=== PATIENT | male | born 1940 | race Caucasian/White ===

== ENCOUNTER → 2019-04-09 | Outpatient (CLI) | payer SELFPAY | END | disposition home or self-care (01) | LOC: LAB 19:24 → LAB SHORT 19:24 | DX: L08.9 Local infection of the skin and subcutaneous tissue, unspecified (principal) | CPT/HCPCS: 87070; 87075; 87077; 87147; 87186; 87205 ==

== ENCOUNTER 2019-05-23 14:00 | Emergency (ER) | payer OTHER, MEDICARE ==
[~2019-05-23] VITALS: Ht 188 cm; Wt 101.6 kg
[2019-05-23] MEDS ORDERED: NOVOLOG FL100 UNIT/1 SC (14:19)
[2019-05-23] MEDS ORDERED: BASAGLAR K100 UNIT/1 SC ×2 (14:19)
[2019-05-23] MEDS ORDERED: LOSA50 PO (14:20)
[2019-05-23] MEDS ORDERED: METO50ER PO (14:20)
[2019-05-23] MEDS ORDERED: NITR.4SL SL (14:20)
[2019-05-23] MEDS ORDERED: SENN187 PO (14:21)
[2019-05-23] MEDS ORDERED: MIRALAX17 GM PO (14:21)
[2019-05-23] MEDS ORDERED: OXYC5 PO (14:21)
[2019-05-23] MEDS ORDERED: OMEP20ER PO (14:21)
[2019-05-23] MEDS ORDERED: TORSE20 PO (14:22)
[2019-05-23] MEDS ORDERED: Gas Relief80 MG PO (14:22)
[2019-05-23] MEDS ORDERED: Saline Nose Spr45 ML (14:22)
[2019-05-23] MEDS ORDERED: Fergon240 M1 PO (14:23)
[2019-05-23] MEDS ORDERED: FINA5 PO (14:23)
[2019-05-23] MEDS ORDERED: Vitamin D2000 UNIT PO (14:23)
[2019-05-23] MEDS ORDERED: GABA300 PO (14:24)
[2019-05-23] MEDS ORDERED: ACET325 PO (14:24)
[2019-05-23] MEDS ORDERED: ELIQUIS5 MG PO (14:25)
[2019-05-23] MEDS ORDERED: ALBU90OI INH (14:25)
[2019-05-23] MEDS ORDERED: ASCO500 PO (14:25)
[2019-05-23] MEDS ORDERED: Aspirin EC81 MG PO (14:26)
[2019-05-23 14:43] LABS: BASOPHILS ABSOLUTE AUTO 0.07 K/mm3 (0.00-0.23); BASOPHILS PERCENT AUTO 1 % (0-2); EOSINOPHILS ABSOLUTE AUTO 0.25 K/mm3 (0.00-0.68); EOSINOPHILS PERCENT AUTO 2 % (0-6); Hematocrit 45.5 % (37.0-53.0); Hemoglobin 14.4 g/dL (13.5-17.5); IMMATURE GRAN ABSOLUTE AUTO 0.04 K/mm3 (0.00-0.10); IMMATURE GRAN PERCENT AUTO 0 % (0-1); LYMPHOCYTES ABSOLUTE AUTO 1.39 K/mm3 (0.84-5.20); LYMPHOCYTES PERCENT AUTO 14 % (21-46); MONOCYTES ABSOLUTE AUTO 0.63 K/mm3 (0.16-1.47); MONOCYTES PERCENT AUTO 6 % (4-13); Mean Corpuscular HGB 29.4 pg (26.0-34.0); Mean Corpuscular HGB Conc 31.6 g/dL (31.5-36.5); Mean Corpuscular Volume 93 fL (80-100); Mean Platelet Volume 12.7 fL (9.1-12.4); NEUTROPHILS ABSOLUTE AUTO 7.94 K/mm3 (1.96-9.15); NEUTROPHILS PERCENT AUTO 77 % (41-73); Platelet Count 175 K/mm3 (150-400); RDW Coefficient Variation 14.2 % (11.7-14.2); RDW Standard Deviation 48.8 fL (35.1-46.3); White Blood Cell Count 10.32 K/mm3 (4.00-11.30)
[2019-05-23 14:57] LABS: Albumin, Blood 3.2 g/dL (3.4-5.0); Albumin/Globulin Ratio 0.6 (0.8-1.8); Bilirubin, Total 0.6 mg/dL (0.1-1.0); Bun/Creatinine Ratio 30.5 (12.0-20.0); C-REACTIVE PROTEIN, EXT RANGE 1.66 mg/dL (0.000-0.300); Calcium, Blood 9.5 mg/dL (8.5-10.1); Creatinine, Blood 2.1 mg/dL (0.60-1.20); Globulin, Blood 5.7 g/dL (2.2-4.0); Potassium, Blood 4.4 mmol/L (3.5-5.5); Total Protein, Blood 8.9 g/dL (6.4-8.2)
[2019-05-23] MEDS ORDERED: DOXYCYCLINE HY100 M1 PO (17:08)
[2019-05-23] MEDS ORDERED: Bactrim Ds Tab1 EACH PO (17:08)
== END 2019-05-23 17:52 | disposition home or self-care (01) ==
LOC: ER 14:00
PROVIDERS: Emergency Medicine
DX: E11.621 Type 2 diabetes mellitus with foot ulcer (principal); L97.519 Non-pressure chronic ulcer of other part of right foot with unspecified severity; I48.91 Unspecified atrial fibrillation; Z79.82 Long term (current) use of aspirin; Z79.899 Other long term (current) drug therapy; Z79.4 Long term (current) use of insulin; Z89.411 Acquired absence of right great toe
CPT/HCPCS: 36415; 73620; 80053; 82947; 83605; 85025; 85651; 86140; 93005; 93010; 99284-25

== ENCOUNTER 2019-08-18 05:14 | Observation (INO) | payer OTHER, MEDICARE ==
[~2019-08-18] VITALS: Ht 188 cm; Wt 108.2 kg
[~2019-08-18 05:14] MED LIST: ACET325 PO; ALBU90OI INH; ASCO500 PO; Aspirin EC81 MG PO; BASAGLAR K100 UNIT/1 SC; Bactrim Ds Tab1 EACH PO; DOXYCYCLINE HY100 M1 PO; ELIQUIS5 MG PO; FINA5 PO; Fergon240 M1 PO; GABA300 PO; Gas Relief80 MG PO; LOSA50 PO; METO50ER PO; MIRALAX17 GM PO; NITR.4SL SL; NOVOLOG FL100 UNIT/3 SC; OMEP20ER PO; OXYC5 PO; SENN187 PO; Saline Nose Spr45 ML; TORSE20 PO; Vitamin D2000 UNIT PO
[2019-08-18] MEDS ORDERED: ATOR10 PO (05:47)
[2019-08-18] MEDS ORDERED: FERSU300 PO (05:49)
[2019-08-18] MEDS ORDERED: DOCU100 PO (05:49)
[2019-08-18] MEDS ORDERED: LINE600 PO (05:51)
[2019-08-18] MEDS ORDERED: POTA10T PO (05:53)
[2019-08-18 06:44] LABS: BASOPHILS ABSOLUTE AUTO 0.04 K/mm3 (0.00-0.23); BASOPHILS PERCENT AUTO 0 % (0-2); EOSINOPHILS ABSOLUTE AUTO 0.25 K/mm3 (0.00-0.68); EOSINOPHILS PERCENT AUTO 2 % (0-6); Hematocrit 29.9 % (37.0-53.0); Hemoglobin 9.2 g/dL (13.5-17.5); IMMATURE GRAN ABSOLUTE AUTO 0.03 K/mm3 (0.00-0.10); IMMATURE GRAN PERCENT AUTO 0 % (0-1); LYMPHOCYTES ABSOLUTE AUTO 1.26 K/mm3 (0.84-5.20); LYMPHOCYTES PERCENT AUTO 12 % (21-46); MONOCYTES ABSOLUTE AUTO 0.88 K/mm3 (0.16-1.47); MONOCYTES PERCENT AUTO 8 % (4-13); Mean Corpuscular HGB 28.1 pg (26.0-34.0); Mean Corpuscular HGB Conc 30.8 g/dL (31.5-36.5); Mean Corpuscular Volume 91 fL (80-100); Mean Platelet Volume 11.3 fL (9.1-12.4); NEUTROPHILS ABSOLUTE AUTO 8.44 K/mm3 (1.96-9.15); NEUTROPHILS PERCENT AUTO 77 % (41-73); Platelet Count 301 K/mm3 (150-400); RDW Coefficient Variation 13.8 % (11.7-14.2); RDW Standard Deviation 46.6 fL (35.1-46.3); Red Blood Cell Count 3.27 M/mm3 (4.30-5.90)
[2019-08-18 07:06] LABS: Troponin I <0.015 ng/mL (0.000-0.040)
[2019-08-18 07:07] LABS: Alanine Aminotransfer (ALT/SGP 19 U/L (12-78); Albumin, Blood 2.3 g/dL (3.4-5.0); Albumin/Globulin Ratio 0.4 (0.8-1.8); Alk Phos 91 U/L (50-136); Anion Gap 3 mmol/L (6-16); Aspartate Aminotrans (AST/SGOT 21 U/L (12-37); Bilirubin, Total 0.6 mg/dL (0.1-1.0); Blood Urea Nitrogen 55 mg/dL (8-24); Bun/Creatinine Ratio 32.9 (12.0-20.0); CO2, Blood 28 mmol/L (21-32); Calcium, Blood 9.1 mg/dL (8.5-10.1); Chloride, Blood 106 mmol/L (98-108); Creatinine, Blood 1.67 mg/dL (0.60-1.20); Globulin, Blood 5.5 g/dL (2.2-4.0); Glomerular Filtration Rate 43 (60-); Glucose, Blood 299 mg/dL (70-99); Potassium, Blood 4.7 mmol/L (3.5-5.5); Sodium, Blood 137 mmol/L (136-145); Total Protein, Blood 7.8 g/dL (6.4-8.2)
[2019-08-18 08:08] LABS: Source, Urine Clean Catch
[2019-08-18 08:24] LABS: Appearance, Urine Clear (Clear); Bilirubin, Urine Neg (Neg); Blood, Urine 3+ (Neg); Color, Urine Yellow (P-Yellow); Glucose Qualitative, Urine 3+ (Neg); Ketones, Urine Neg (Neg); Leukocyte Esterase, Urine Neg (Neg); Nitrite, Urine Neg (Neg); Protein, Urine Trace (Neg); Urobilinogen, Urine NORM (Normal)
[2019-08-18 08:30] LABS: Squamous Epithelial Cells Few /hpf (Few); White Blood Cells, Urine 0-2 /hpf (0-5)
[2019-08-18 08:31] LABS: Bacteria Few /hpf
[2019-08-18 12:53] LABS: Hematocrit 29.4 % (37.0-53.0); Hemoglobin 9.1 g/dL (13.5-17.5)
--- NOTE | 2019-08-18 18:39 | NUR ---
PT AOX4 AND COOPERATIVE OF CARE. PT IS RESTING IN BED DENIED TREATABLE PAIN AT THIS TIME. PT HAS WOUNDS ON BOTH FEET AND HAS HAD PRIOR TOE AMPUTATION. PT STATES HIS L FOOT IS MUCH WORSE THAN HIS R AND GIVES HIM MORE PAIN. PT RESTING IN ROOM AT THIS TIME CALL LIGHT WITHIN REACH NO DISTRESS NOTED.
[2019-08-18 18:53] LABS: Hematocrit 29.4 % (37.0-53.0); Hemoglobin 8.8 g/dL (13.5-17.5)
--- NOTE | 2019-08-18 20:55 | NUR ---
ELISABET ALERTED TO [facility] 361 W/AC ONLY [facility] COVERAGE. NO NEW ORDERS AT THIS TIME AND HE WANTS US TO ADMINISTER HS LEVIMIR RX'D W/REEVALUATION IN THE MORNING BY DAY HOSPITALIST.
[2019-08-19 00:32] LABS: Hematocrit 30.3 % (37.0-53.0); Hemoglobin 9.1 g/dL (13.5-17.5)
--- NOTE | 2019-08-19 04:00 | NUR ---
WOUND DOCUMENTATION: PT HAS DAILY DX CHANGES AN OUTPATIENT AND WOUND CARE COMPLETED AT THE [facility] BUT DX CHANGE HADN'T BEEN PERFORMED X2 DAYS AND PHOTOS NOT YET TAKEN UPON ADMIT. HE REPORTS FOOT WOUNDS HAVE EXISTED "FOR YEARS". WALKING BOOT AND OLD DX REMOVED FROM L.FOOT. PT HAS AMPUTATED TOES AND WOUNDS TO BOTTOM OF FOOT, AND TOP AND TIPS OF REMAINING TOES. WOUNDS HAVE A FOUL ODOR W/LARGE AMT OF YELLOW/SANGUINOUS DRAINAGE. SKINTEGRITY USED TO CLEANS FOOT AND W/ STERILE WATER TO RINSE THEN PHOTOS TAKEN. MEPILEX FOAM DX WAS APLIED THEN WRAPPED W/KURLEX, CHICKEN SKIN AND SECURED W/ELVIRA BANDAGE. BOOT LEFT OFF TO GIVE PT A BREAK FROM IT. R. FOOT HAS AMPUTATIONS WELL. OPEN SORE NOTED TO TIP OF ONE OF HIS TOES SO WAS CLEANSED W/SKINTEGRITY, PICS TAKEN AND BANDAID REPLACED. SEE PHOTOS FOR ADDITIONAL WOUND APPEARANC DETAILS.
--- NOTE | 2019-08-19 05:21 | NUR ---
SUMMARY: A/OX4, CALLS APPROPRIATELY AND SPECIFIES NEEDS. HE IS MOSTLY W/C BOUND AT [facility] D/T FOOT WOUNDS AND TOE AMPUTATIONS BUT DOES PIVOT T/F TO CHAIR AND BSC INDEPENDENTLY. HE KNOWS TO CALL FOR ASSIST IF FEELING WEAK OR UNABLE. WOUND DOCUMENTATION COMPLETED W/PHOTOS TAKEN AND DX'S CHANGED. HE HAS DIABETIC FOOT ULCERS AND TOE AMPUTATIONS TO BILAT FEET, SEE PICS FOR DETAILS. PLANS TO SCOPE PT TODAY FOR POSSIBLE GI BLEEDING. GOLYTELY WAS COMMENCED AND COMPLETED THIS SHIFT W/DUCOLAX ORAL SUPPOSITORY RECIEVED PER RX. PT NOW HAVING CLEAR LIQUID STOOLS AND NO S/S BLEEDING OBSERVED. H&H STABLE T/O NOCTE. CBG'S WERE ELEVATED AT HS, 361 W/ELISABET ([employer]) NOTIFIED BUT NO NEW ORDERS FOR HS COVERAGE OBTAINED. SCHEDULED LEVIMIR WAS RECIEVED AND DAY HOSPITALIST TO REEVALUATE. HE REMAINS AFIB ON TELEMETRY, RATE 70'S-80'S. NO ACUTE CHANGES, VSS/AFEBRILE. WCTM AND REPORT TO DAY RN.
[2019-08-19 06:31] LABS: BASOPHILS ABSOLUTE AUTO 0.03 K/mm3 (0.00-0.23); BASOPHILS PERCENT AUTO 0 % (0-2); EOSINOPHILS ABSOLUTE AUTO 0.22 K/mm3 (0.00-0.68); EOSINOPHILS PERCENT AUTO 2 % (0-6); Hematocrit 28.3 % (37.0-53.0); Hemoglobin 8.7 g/dL (13.5-17.5); IMMATURE GRAN ABSOLUTE AUTO 0.04 K/mm3 (0.00-0.10); IMMATURE GRAN PERCENT AUTO 0 % (0-1); LYMPHOCYTES PERCENT AUTO 13 % (21-46); MONOCYTES ABSOLUTE AUTO 0.84 K/mm3 (0.16-1.47); MONOCYTES PERCENT AUTO 9 % (4-13); Mean Corpuscular HGB 28.1 pg (26.0-34.0); Mean Corpuscular HGB Conc 30.7 g/dL (31.5-36.5); Mean Corpuscular Volume 91 fL (80-100); Mean Platelet Volume 11.1 fL (9.1-12.4); NEUTROPHILS ABSOLUTE AUTO 6.69 K/mm3 (1.96-9.15); NEUTROPHILS PERCENT AUTO 74 % (41-73); Platelet Count 270 K/mm3 (150-400); RDW Coefficient Variation 13.9 % (11.7-14.2); RDW Standard Deviation 45.8 fL (35.1-46.3); White Blood Cell Count 9.02 K/mm3 (4.00-11.30)
[2019-08-19 06:46] LABS: Bun/Creatinine Ratio 25.5 (12.0-20.0); Calcium, Blood 8.7 mg/dL (8.5-10.1); Creatinine, Blood 1.49 mg/dL (0.60-1.20); Potassium, Blood 3.8 mmol/L (3.5-5.5)
[2019-08-19 12:16] LABS: Hematocrit 28.3 % (37.0-53.0); Hemoglobin 8.8 g/dL (13.5-17.5)
--- NOTE | 2019-08-19 15:48 | NUR ---
History, Chart, Medications and Allergies reviewed before start of procedure. Patient confirms NPO status and agrees with scheduled surgery. Patient states he finished his bowel prep this morning around 0600.
--- NOTE | 2019-08-19 16:20 | NUR ---
08/19/19 1619 Maximino Hamilton Bite Block PlacedPATIENT DETERMINED TO BE ASA APPROPRIATE FOR PROPOFOL SEDATION PRIOR TO START OF PROCEDURE BY 3-LEAD EKG REVIEWED WITH PHYSICIAN PRIOR TO START OF PROCEDURE. History, Chart, Medications and Allergies reviewed before start of procedure.MONITOR INTACT WITH CONTINUOUS PULSE OXIMETRY AND INTERMITTENT BP.O2 VIA N/C INTACT THROUGHOUT SEDATION/PROCEDURE.
--- NOTE | 2019-08-19 17:03 | NUR ---
SUMMARY PT IS A/O X4, PLEASANT AFFECT. HE IS ABLE TO STAND TO GET TO BSC HOWEVER UNABLE TO AMBULATE W/O SPECIAL WALKING SHOE & BOOT TO BLE D/T DIABETIC WOUNDS. HX BIG TOE AMPUTATIONS BILAT. DRSGS CHANGED BY RYAN RN HAVE STAYED CDI T/O DAY. DX GIB, HE HAS HAD NO BLOOD IN STOOLS, HE COMPLETED BOWEL PREP LAST NOC & WENT OUT TO OR TODAY @ 1530 FOR EGD & COLONOSCOPY--CONTINUES OUT FOER PROCEDURE @ THIS TIME. SERIAL H&H ORDERED, LAST .10/30.3. VSS
--- NOTE | 2019-08-19 17:22 | NUR ---
EGD/COLONOSCOPY COMPLETE. GIS SCIENTIST STATE TOLERATE WELL. STATE EGD SHOWED SOME ESOPHAGEAL IRRITATION, COLONOSCOPY FOUND POLYP, TOOK BIOPSYS. VSS.
[2019-08-19 18:26] LABS: Hematocrit 32.3 % (37.0-53.0); Hemoglobin 9.9 g/dL (13.5-17.5)
[2019-08-20 04:48] LABS: Hematocrit 29.1 % (37.0-53.0); Hemoglobin 9.1 g/dL (13.5-17.5)
--- NOTE | 2019-08-20 07:33 | NUR ---
SUMMARY: PT A/OX4, CALLS APPROPRIATELY AND SPECIFIES NEEDS. HE USES W/C AT [facility] BUT IS ABLE TO T/F SELF TO BSC OR CHAIR. PT WEARS WALKING BOOT AND SHOE FOR AMBULATION BUT WAS GIVEN BREAK FROM THEM DURING NIGHT. BILAT FOOT WOUND DX'S REMAIN C/D/I TO ULCERS, SEE PHOTOS FOR DETAILS. CHEMBG'S STABLE AND PT TOLERATING ADA DIET. HE DENIED ABDO PAIN AND NAUSEA POST SCOPE EGD AND NO S/S ACTIVE BLEEDING OBSERVED. H&H LOWER THIS AM BUT IS STABLE. HE REMAINS AFIB W/HR 70'S BPM. NO ACUTE CHANGES, VSS/AFEBRILE. POSSIBLE D/C TODAY AND REPORT PROVIDED TO DAY RN.
[2019-08-20] MEDS ORDERED: OMEP20ER PO (12:25)
== END 2019-08-20 13:54 | disposition home health service (06) ==
LOC: ER 05:14 → MEDS 05:15 → PCU 05:15 → MEDS 11:09
PROVIDERS: Emergency Medicine; Internal Medicine Gastroenterology; ADMIT Family Medicine
PROC: 0DB98ZZ Excision of Duodenum, Via Natural or Artificial Opening Endoscopic (ICD-10-PCS; principal; 2019-08-19 16:00)
PROC: 0DBL8ZX Excision of Transverse Colon, Via Natural or Artificial Opening Endoscopic, Diagnostic (ICD-10-PCS; principal; 2019-08-19 16:00)
PROC: 0DBP8ZX Excision of Rectum, Via Natural or Artificial Opening Endoscopic, Diagnostic (ICD-10-PCS; principal; 2019-08-19 16:00)
PROC: 0DB68ZX Excision of Stomach, Via Natural or Artificial Opening Endoscopic, Diagnostic (ICD-10-PCS; principal; 2019-08-19 16:00)
DX: D68.32 Hemorrhagic disorder due to extrinsic circulating anticoagulants (principal); D62 Acute posthemorrhagic anemia; R19.5 Other fecal abnormalities; K29.80 Duodenitis without bleeding; K44.9 Diaphragmatic hernia without obstruction or gangrene; D12.3 Benign neoplasm of transverse colon; K62.1 Rectal polyp; K25.9 Gastric ulcer, unspecified as acute or chronic, without hemorrhage or perforation; K64.1 Second degree hemorrhoids; I48.0 Paroxysmal atrial fibrillation; E11.40 Type 2 diabetes mellitus with diabetic neuropathy, unspecified; E78.5 Hyperlipidemia, unspecified; I12.9 Hypertensive chronic kidney disease with stage 1 through stage 4 chronic kidney disease, or unspecified chronic kidney disease; N18.3 Chronic kidney disease, stage 3 (moderate); E11.22 Type 2 diabetes mellitus with diabetic chronic kidney disease; E11.621 Type 2 diabetes mellitus with foot ulcer; L97.519 Non-pressure chronic ulcer of other part of right foot with unspecified severity; L97.529 Non-pressure chronic ulcer of other part of left foot with unspecified severity; Z66 Do not resuscitate; Z79.899 Other long term (current) drug therapy; Z79.4 Long term (current) use of insulin; Z79.01 Long term (current) use of anticoagulants
CPT/HCPCS: 36415; 80048; 80053; 81001; 82947; 84443; 84484; 85014; 85018; 85025; 88305; 88342; 93005; 93010; 96360; 96361; 99285-25; A9270-GY; C9113; G0378; J1610; J1815; J2704; J7030; J7120; U0002

== ENCOUNTER 2020-05-20 11:55 | Emergency (ER) | payer OTHER, MEDICARE ==
[~2020-05-20] VITALS: Ht 188 cm; Wt 107.0 kg
[~2020-05-20 11:55] MED LIST changes: +ATOR10 PO; +DOCU100 PO; +FERSU300 PO; +LINE600 PO; +Miralax17 GM PO; +POTA10T PO
== END 2020-05-20 12:45 | disposition home or self-care (01) ==
LOC: ER 11:55
DX: T18.2XXA Foreign body in stomach, initial encounter (principal); J44.9 Chronic obstructive pulmonary disease, unspecified; E11.9 Type 2 diabetes mellitus without complications; I48.91 Unspecified atrial fibrillation; I50.9 Heart failure, unspecified; Z79.4 Long term (current) use of insulin; Z87.891 Personal history of nicotine dependence; Z79.899 Other long term (current) drug therapy
CPT/HCPCS: 71045; 74018; 99283-25

== ENCOUNTER 2020-06-23 15:09 | Emergency (ER) | payer OTHER, MEDICARE ==
[~2020-06-23] VITALS: Ht 188 cm; Wt 107.5 kg
== END 2020-06-23 16:44 | disposition home or self-care (01) ==
LOC: ER 15:09
DX: S09.90XA Unspecified injury of head, initial encounter (principal); S20.211A Contusion of right front wall of thorax, initial encounter; E11.9 Type 2 diabetes mellitus without complications; I48.91 Unspecified atrial fibrillation; Z79.4 Long term (current) use of insulin; Z87.891 Personal history of nicotine dependence; Z79.899 Other long term (current) drug therapy
CPT/HCPCS: 70450; 71046; 82947; 99284-25

== ENCOUNTER 2020-08-25 01:32 | Emergency (ER) | payer OTHER, MEDICARE ==
[~2020-08-25] VITALS: Ht 188 cm; Wt 106.6 kg
[2020-08-25 01:58] LABS: BASOPHILS ABSOLUTE AUTO 0.03 K/mm3 (0.00-0.23); BASOPHILS PERCENT AUTO 0 % (0-2); EOSINOPHILS ABSOLUTE AUTO 0.36 K/mm3 (0.00-0.68); EOSINOPHILS PERCENT AUTO 5 % (0-6); Hematocrit 35.9 % (37.0-53.0); Hemoglobin 11.4 g/dL (13.5-17.5); IMMATURE GRAN ABSOLUTE AUTO 0.02 K/mm3 (0.00-0.10); IMMATURE GRAN PERCENT AUTO 0 % (0-1); LYMPHOCYTES ABSOLUTE AUTO 1.26 K/mm3 (0.84-5.20); LYMPHOCYTES PERCENT AUTO 17 % (21-46); MONOCYTES ABSOLUTE AUTO 0.97 K/mm3 (0.16-1.47); MONOCYTES PERCENT AUTO 13 % (4-13); Mean Corpuscular HGB 29.8 pg (26.0-34.0); Mean Corpuscular HGB Conc 31.8 g/dL (31.5-36.5); Mean Corpuscular Volume 94 fL (80-100); Mean Platelet Volume 11.6 fL (9.1-12.4); NEUTROPHILS PERCENT AUTO 65 % (41-73); Platelet Count 162 K/mm3 (150-400); RDW Coefficient Variation 13.7 % (11.7-14.2); RDW Standard Deviation 47.2 fL (35.1-46.3); Red Blood Cell Count 3.82 M/mm3 (4.30-5.90); White Blood Cell Count 7.64 K/mm3 (4.00-11.30)
[2020-08-25] MEDS ORDERED: FLUO.01TC TOP (02:09)
[2020-08-25] MEDS ORDERED: FURO40 PO (02:09)
[2020-08-25] MEDS ORDERED: GLUCOSE CHEW TAB PO (02:11)
[2020-08-25] MEDS ORDERED: HYDR10 PO (02:12)
[2020-08-25 02:13] LABS: Alanine Aminotransfer (ALT/SGP 19 U/L (12-78); Albumin, Blood 3.2 g/dL (3.4-5.0); Albumin/Globulin Ratio 0.8 (0.8-1.8); Alk Phos 101 U/L (50-136); Anion Gap 6 mmol/L (6-16); Aspartate Aminotrans (AST/SGOT 14 U/L (12-37); Bilirubin, Total 0.5 mg/dL (0.1-1.0); Blood Urea Nitrogen 33 mg/dL (8-24); Bun/Creatinine Ratio 20.9 (12.0-20.0); CO2, Blood 25 mmol/L (21-32); Calcium, Blood 9.1 mg/dL (8.5-10.1); Chloride, Blood 107 mmol/L (98-108); Creatinine, Blood 1.58 mg/dL (0.60-1.20); Globulin, Blood 3.8 g/dL (2.2-4.0); Glomerular Filtration Rate 45 (60-); Glucose, Blood 172 mg/dL (70-99); Potassium, Blood 4.3 mmol/L (3.5-5.5); Sodium, Blood 138 mmol/L (136-145); Troponin I <0.015 ng/mL (0.000-0.040)
[2020-08-25] MEDS ORDERED: BASAGLAR K100 UNIT/1 SC ×2 (02:13→02:14)
[2020-08-25] MEDS ORDERED: NARCAN4 M1 (02:17)
[2020-08-25] MEDS ORDERED: STRIVERDI RESPIM4 G1 INH (02:18)
[2020-08-25] MEDS ORDERED: Flomax0.4 MG PO (02:19)
[2020-08-25] MEDS ORDERED: ELIQUIS2.5 MG PO (02:20)
[2020-08-25] MEDS ORDERED: ALBU90OI INH (02:21)
[2020-08-25] MEDS ORDERED: ACET325 PO (02:21)
== END 2020-08-25 03:23 | disposition home or self-care (01) ==
LOC: ER 01:32
PROVIDERS: Emergency Medicine
DX: R07.9 Chest pain, unspecified (principal); E11.9 Type 2 diabetes mellitus without complications; I48.91 Unspecified atrial fibrillation; Z79.4 Long term (current) use of insulin; Z79.01 Long term (current) use of anticoagulants; Z79.899 Other long term (current) drug therapy
CPT/HCPCS: 71046; 80053; 83690; 83880; 84484; 85025; 93005; 93010; 99285-25

== ENCOUNTER 2020-10-27 10:25 | Emergency (ER) | payer OTHER ==
[~2020-10-27] VITALS: Ht 188 cm; Wt 107.5 kg
[~2020-10-27 10:25] MED LIST changes: +ELIQUIS2.5 MG PO; +FLUO.01TC TOP; +FURO40 PO; +Flomax0.4 MG PO; +GLUCOSE CHEW TAB PO; +HYDR10 PO; +NARCAN4 M1; +STRIVERDI RESPIM4 G1 INH
== END 2020-10-27 12:54 | disposition home or self-care (01) ==
LOC: ER 10:25
DX: H54.62 Unqualified visual loss, left eye, normal vision right eye (principal); E11.9 Type 2 diabetes mellitus without complications; I48.91 Unspecified atrial fibrillation; D64.9 Anemia, unspecified; I50.9 Heart failure, unspecified; Z79.899 Other long term (current) drug therapy; Z79.4 Long term (current) use of insulin; Z79.01 Long term (current) use of anticoagulants; Z87.891 Personal history of nicotine dependence
CPT/HCPCS: 99284